=== PATIENT | female | born 1970 | race Caucasian/White ===

== ENCOUNTER 2023-10-20 18:30 | Emergency (ER) | payer BC ==
[~2023-10-20] VITALS: Ht 160 cm; Wt 131.8 kg
[2023-10-20 18:41] VITALS: TEMP 98.2
[2023-10-20 21:27] LABS: BASO # 0.1 K/mm3 (0.0-0.2); BASO % 0.7 % (0.0-2.0); EOS # 0.1 K/mm3 (0.0-0.7); EOS % 0.8 % (0.0-4.0); GRAN # 9.9 K/mm3 (1.4-6.5); GRAN % 73.7 % (42.2-75.2); HEMOGLOBIN 12.9 g/dl (12.5-16.0); LYMPH # 2.5 K/mm3 (1.2-3.4); LYMPH % 18.5 % (20.0-51.0); MEAN CELL VOLUME 79 fl (80.0-100.0); MEAN CORPUSCULAR HEMOGLOBIN 25 pg (27-31); MEAN CORPUSCULAR HGB CONC 32 g/dl (33.0-37.0); MEAN PLATELET VOLUME 10.8 fl (7.4-10.4); MONO # 0.8 K/mm3 (0.1-0.6); PLATELET COUNT 359 K/mm3 (130-400); RED BLOOD COUNT 5.09 M/mm3 (4.10-5.30); REDCELL DISTRIBUTION WIDTH-CV 21.1 % (11.5-14.5)
[2023-10-20] MEDS ORDERED: NS 1,000 ML IV ONE (21:30)
[2023-10-20 21:37] LABS: ALBUMIN 3.9 gm/dL (3.5-5.0); BILIRUBIN,TOTAL 0.4 mg/dL (0.2-1.2); C-REACTIVE PROTEIN 1.84 mg/dL (0.00-0.50); CALCIUM 9.6 mg/dL (8.4-10.2); CREATININE, serum 0.81 mg/dL (0.57-1.11); POTASSIUM 4.2 mmol/L (3.5-4.5); TOTAL PROTEIN 7.2 gm/dL (6.2-8.1)
[2023-10-20] MEDS ORDERED: droPERidol 2.5 MG/ML 2 ML VIAL IV ONE (22:45)
[2023-10-20] MEDS ORDERED: Home Promethazine 25 MG #2 TAB/PACK PO ONE (23:45)
[2023-10-20] MEDS ORDERED: Home Promethazine 25 MG #1 SUPP/PACK RC ONE (23:45)
[2023-10-21 00:03] VITALS: BP 144/80; PULSE 82
== END 2023-10-21 00:04 | disposition home or self-care (01) ==
LOC: COL.ER 18:30
PROVIDERS: Nurse Practitioner
DX: E11.43 Type 2 diabetes mellitus with diabetic autonomic (poly)neuropathy (principal); K31.84 Gastroparesis
CPT/HCPCS: J1790; J2765; J7030